=== PATIENT | female | born 1955 | race Caucasian/White ===

== ENCOUNTER 2017-06-13 06:17 | Day surgery (SDC) | payer OTHER ==
[2017-06-09 10:02] VITALS: BMI 26.9
[2017-06-13] MEDS ORDERED: ROCURONIUM BROMIDE 50 MG/5 ML VIAL ONE (07:57)
[2017-06-13] MEDS ORDERED: SUCCINYLCHOLINE CHLORIDE 200 MG/10 ML VIAL ONE (07:57)
[2017-06-13] MEDS ORDERED: PROPOFOL 20 ML ONE (07:57)
[2017-06-13] MEDS ORDERED: LIDOCAINE HCL/PF 2% SDV 5ML VIAL ONE (07:57)
[2017-06-13] MEDS ORDERED: MIDAZOLAM HCL 2 MG/2 ML SINGLE DOSE VIAL ONE (07:58)
--- NOTE | 2017-06-13 08:05 | HP ---
History & Physical Update - History History: No Change - Physical Physical: No Change - Assessment Assessment: No Change - Plan Plan: No Change
--- NOTE | 2017-06-13 08:15 | HP ---
Satellite H - Chief Complaint Chief Complaint: Left and right groin pain History of Present Illness: 61 female with left possible right inguinal hernias History Source: Patient Limitations to Obtaining History: No Limitations - Past Medical History Allergies/Adverse Reactions: Allergies Allergy/AdvReac Type Severity Reaction Status Date / Time guaifenesin [From Robitussin] Allergy "HIVES" Verified 06/13/17 06:44 naproxen [From Naprosyn] Allergy "HIVES" Verified 06/13/17 06:44 naproxen sodium [From Aleve] Allergy "HIVES" Verified 06/13/17 06:44 Penicillins Allergy Hives Verified 06/13/17 06:44 ANTIHISTAMINES Allergy "HIVES" Uncoded 06/13/17 06:44 - Current Medications Current Medications: Home Medications Medication Instructions Recorded Ascorbate Calcium [Vitamin C] 500 mg PO DAILY 06/09/17 Aspirin Coated [Ecotrin -] 81 mg PO DAILY 06/09/17 Chlorophyllin/Haskell [Chlorophyll 1 each PO BIDAC 06/09/17 20 mg Tablet] Satellite Physical Exam - Physical Examination Vital Signs: Vital Signs Period Temp Pulse Resp BP Sys/Daley Pulse Ox Last 24 Hr 97.6 F 70 20 131/85 100 General Appearance: Well Nourished Lung: Clear to auscultation Heart: Regular rate & rhythm Abdomen: No tenderness, Other (+ Left inguinal hernia, possible right inguinal hernia) Neurological: Alert, Oriented Satellite Impression/Plan - Impression/Plan Impression: Left possible bilateral inguinal hernias Operative Procedure: Robotic left possible right inguinal hernia repair with mesh Date to be Performed: 06/13/17
[2017-06-13] MEDS ORDERED: CLINDAMYCIN 600 MG PREMIX BAG IVPB ONE (08:32)
[2017-06-13] MEDS ORDERED: DEXAMETHASONE SOD PHOSPHATE 4 MG/1 ML VIAL ONE ×2 (08:34→10:29)
[2017-06-13] MEDS ORDERED: CLINDAMYCIN PHOSPHATE 600 MG/4 ML VIAL ONE (08:34)
[2017-06-13] MEDS ORDERED: ePHEDrine SULFATE 50 MG/1 ML AMPULE ONE (08:41)
[2017-06-13] MEDS ORDERED: BUPIVACAINE HCL/PF 0.5% (5MG/ML) 10 ML VIAL IJ ONE ×2 (08:58→10:24)
[2017-06-13] MEDS ORDERED: PROMETHAZINE HCL 25 MG/1 ML VIAL IVPUSH PRN (10:02)
[2017-06-13] MEDS ORDERED: oxyCODONE HCL 5 MG TABLET PO PRN (10:02)
[2017-06-13] MEDS ORDERED: ONDANSETRON 4 MG/2 ML VIAL IVPUSH PRN (10:02)
[2017-06-13] MEDS ORDERED: LACTATED RINGERS SOLUTION 1,000 ML IV SCH (10:15)
[2017-06-13] MEDS ORDERED: NEOSTIGMINE METHYLSULFATE 0.5 MG/ML - 10 ML MDV ONE (10:23)
--- NOTE | 2017-06-13 11:51 | OP ---
Operative Note - Note: Operative Date: 06/13/17 Pre-Operative Diagnosis: Left recurrent inguinal hernia possible right Operation: Robotic left recurrent inguinal hernia repair with mesh, Robotic right recurrent inguinal hernia repair with mesh, open umbilical hernia repair Post-Operative Diagnosis: Other (Bilateral recurrent inguinal hernias, umbilical hernia) Surgeon: Brian Nelson Ripsawyer: Santa Jordan Anesthesia: General Specimens Removed: Left inguinal hernia content Estimated Blood Loss (mls): 30 Operative Report Dictated: Yes
--- NOTE | 2017-06-13 11:52 | OP ---
Operative Note - Note: Operative Date: 06/13/17 Pre-Operative Diagnosis: left inguinal hernia, possible right hernia Operation: robotic assisted bilateral inguinal hernia repari with mesh, repair of umbilical hernia Surgeon: Brian Nelson Prop Maker: Santa Jordan Anesthesiologist/DISPLAY CARD WRITER: Camila Corley Anesthesia: General Estimated Blood Loss (mls): 30 Drains, Volume Out (mls): 200 (lanier) Fluid Volume Replaced (mls): 1,400 Operative Report Dictated: Yes
[2017-06-13] MEDS ORDERED: ONDANSETRON 4 MG/2 ML VIAL ONE (13:02)
--- NOTE | 2017-06-13 13:04 | SPEC ---
DATE OF OPERATION: 06/13/2017 SURGEON: Brian Nelson MD CONDUIT WORKER: LUDY Iglesias PREOPERATIVE DIAGNOSIS: Left recurrent inguinal hernia, possible right recurrent inguinal hernia. POSTOPERATIVE DIAGNOSIS: Left recurrent inguinal hernia, right recurrent inguinal hernia and umbilical hernia. PROCEDURE: Robotic repair of the left recurrent inguinal hernia with mesh, robotic repair of right recurrent inguinal hernia with mesh and open umbilical hernia repair. SPECIMEN: Left inguinal hernia contents. ESTIMATED BLOOD LOSS: 30 mL. DRAINS: None. ANESTHESIA: General endotracheal. REASON FOR PROCEDURE: This is a 61-year-old female who presented to the office for leg groin pain. She had previous repair in both of her inguinal regions for inguinal hernia repairs in the past. On examination she was noted to have a left inguinal hernia. In addition she decreased some pain in her right groin and a possible right inguinal hernia was palpated as well. Because of this she was consented for robotic left, possible bilateral, inguinal hernia repair with mesh, possible open. RISKS AND BENEFITS: The risks and benefits of a robotic, possible open left inguinal hernia repair, possible bilateral inguinal hernia repair with mesh were explained. These included bleeding, infection, recurrence of hernia, [place], DVT, PE, new hernia, injury to surrounding structures including the colon, bowel, bladder, ureter, round ligament, adnexal structures, vessel injury, nerve injury, and were explained as some of the possible complications. The patient understood and signed informed consent. DESCRIPTION OF PROCEDURE: The patient was placed supine on the operating room table. The patient then underwent general endotracheal intubation. A Mcpherson catheter was inserted. The arms were tucked at the side, and she was placed on a beanbag device. The abdomen was prepped and draped in the usual sterile fashion. A timeout was performed. An umbilical incision was made, and entrance to the abdominal cavity was obtained using an 8-mm robotic optical trocar under direct visualization with a laparoscope. An umbilical hernia was noted. Pneumoperitoneum was established. Subsequently, 2 additional 8-mm trocars were placed, one at approximately 6 to 7 cm to the left of the umbilicus and one 6 to 7 cm to the right of the umbilicus. The patient was placed in steep Trendelenburg, left side up position. The robot was brought over the field and docked. Dissection was performed at the console. The peritoneum was opened using the robotic Endoshears. The preperitoneal space over the left inguinal region was dissected. The epigastric vessels were identified and dissected towards the anterior abdominal wall. Dissection of the preperitoneal space was continued from the medial umbilical ligament towards the anterior-superior iliac spine. Medially, dissection was performed until Mainor ligament and the pubis were identified. Lateral to this , the round ligament was identified. The contents of the hernia sac were identified and dissected down to the retroperitoneum. At this point, hemostasis was identified. Again, all the hernia contents and the pold mesh were noted to be completely dissected and noted to have no retraction back to its original position. A Symbotex mesh was then chosen, irrigated, and inserted into the abdominal cavity to cover the entire myopectineal orifice. The mesh was secured medially at the pubis and superolaterally to the abdominal wall with sutures. The mesh was noted to be in good position. The hernia was again noted to be fully reduced and without any tension. At this point, the peritoneal flap was closed using a 2-0 V-Loc suture. Again, hemostasis was identified. Then, the same technique was used on the right side. An indirect hernia defect was noted. The old mesh and the entire hernia defect was noted to be fully reduced after dissection. A symbotex mesh was again applied and secured in the same two positions. Again, hemostasis was noted and the mesh was noted to be in good position. The flalp was closed with a 2-0 V-Loc suture. All needles were removed from the field, and the count was confirmed to be correct. The robotic instruments were removed. The robot was undocked and removed from the operative field. The patient was placed supine. Pneumoperitoneum was desufflated. All trocars were removed. The umbilical hernia was closed using a 0 Vicryl stitch in a [id number] fashion. Marcaine was injection to all wounds and hemostasis was noted at all wounds and all skin incisions were closed using 4-0 Biosyn. Sterile dressings were applied. The Mcpherson catheter was removed at the end of the case. The patient tolerated the procedure well and was transferred to the recovery room in stable condition. Joanna [id number] BRADY
[2017-06-13 13:17] VITALS: TEMP 97.9
[2017-06-13] MEDS ORDERED: oxyCODONE HCL 5 MG TABLET ONE (13:53)
[2017-06-13 14:35] VITALS: BP 143/90; PULSE 96
--- NOTE | 2017-06-13 16:11 | SURG ---
Surgery Reel Operator Note Reel Operator: Santa Jordan PA-C Date of Service: 06/13/17 Diagnosis: Left recurrent inguinal hernia possible right Procedure: Robotic left recurrent inguinal hernia repair with mesh, Robotic right recurrent inguinal hernia repair with mesh, open umbilical hernia repair I was present for the entirety of the operative procedure. For further detail, please refer to operative report. Visit type - Case Type Case Type: Scheduled Admission - Emergency Emergency Visit: No - New patient This patient is new to me today: Yes Date on this admission: 06/13/17 - Critical Care Critical Care patient: No
--- NOTE | 2017-06-14 14:40 | PATH ---
Surgical Pathology Report Patient Name: VELIA ABUDL [facility]. Rec. #: [id number] /Age/Gender: 1955 (Age: 61) / F Account: [id number] Location: [facility] SURGICAL Taken: 06/13/2017 Received: 06/13/2017 Reported: 06/14/2017 Physicians: Brian Nelson M.D. Specimen(s) Received HERNIA CONTENT LEFT Clinical History Left inguinal hernia Final Diagnosis HERNIA CONTENTS, LEFT, INGUINAL HERNIA REPAIR: BENIGN FIBROFATTY TISSUE WITH VASCULAR CONGESTION AND FOCAL HEMORRHAGE. Electronically Signed Yordy Ag M.D. Gross Description Received in formalin labeled "hernia contents left" is a 0.8 x 0.5 x 0.2 cm portion of salgado-yellow soft tissue. The specimen is submitted in toto in one cassette. 06/13/201706/13/2017
== END 2017-06-13 14:39 | disposition home or self-care (01) ==
LOC: JASU-SURG 06:17
PROVIDERS: ATTEND Surgery
PROC: 8E0W0CZ Robotic Assisted Procedure of Trunk Region, Open Approach (ICD-10-PCS; 2017-06-13)
PROC: 0WQF0ZZ Repair Abdominal Wall, Open Approach (ICD-10-PCS; 2017-06-13)
PROC: 0YUA0JZ Supplement Bilateral Inguinal Region with Synthetic Substitute, Open Approach (ICD-10-PCS; principal; 2017-06-13 08:00)
DX: K40.21 Bilateral inguinal hernia, without obstruction or gangrene, recurrent (principal); K42.9 Umbilical hernia without obstruction or gangrene
CPT/HCPCS: 49520; 49585; S2900; 88302-TC; 94760

== ENCOUNTER 2019-02-27 11:49 | Emergency (ER) | payer OTHER ==
--- NOTE | 2019-02-27 11:58 | PDOC ---
Rapid Medical Evaluation Time Seen by Provider: 02/27/19 11:53 Medical Evaluation: Allergies Allergy/AdvReac Type Severity Reaction Status Date / Time guaifenesin [From Robitussin] Allergy "HIVES" Verified 06/13/17 06:44 naproxen [From Naprosyn] Allergy "HIVES" Verified 06/13/17 06:44 naproxen sodium [From Aleve] Allergy "HIVES" Verified 06/13/17 06:44 Penicillins Allergy Hives Verified 06/13/17 06:44 ANTIHISTAMINES Allergy "HIVES" Uncoded 06/13/17 06:44 02/27/19 11:53 I have performed a brief in-person evaluation of this patient. 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
[2019-02-27 11:59] VITALS: PULSE 106; TEMP 98.5; BMI 26.9
[2019-02-27] MEDS ORDERED: diazePAM 5 MG TABLET PO ONE (13:25)
--- NOTE | 2019-02-27 13:32 | PDOC ---
History of Present Illness - General Chief Complaint: Head/Neck problem Stated Complaint: Pain, Acute Time Seen by Provider: 02/27/19 11:53 Past History - Past Medical History Allergies/Adverse Reactions: Allergies Allergy/AdvReac Type Severity Reaction Status Date / Time guaifenesin [From Robitussin] Allergy "HIVES" Verified 02/27/19 11:54 naproxen [From Naprosyn] Allergy "HIVES" Verified 02/27/19 11:54 naproxen sodium [From Aleve] Allergy "HIVES" Verified 02/27/19 11:54 Penicillins Allergy Hives Verified 02/27/19 11:54 ANTIHISTAMINES Allergy "HIVES" Uncoded 02/27/19 11:54 Home Medications: Ambulatory Orders Cyclobenzaprine HCl [Flexeril -] 10 mg PO TID 02/27/19 Hydrochlorothiazide [Hctz -] 12.5 mg PO DAILY 02/27/19 Methylprednisolone [Medrol Dose Rd] 4 mg PO ASDIR #21 tablet 02/27/19 Anemia: No Asthma: No Cancer: No Cardiac Disorders: No ("NEGATIVE ANGIOGRAM") CVA: No COPD: No CHF: No Dementia: No Diabetes: No GI Disorders: No Disorders: No HTN: Yes Hypercholesterolemia: No Liver Disease: No Seizures: No Thyroid Disease: No - Surgical History Abdominal Surgery: Yes (DANIEL INGUINAL HERNIA REPAIR) - Suicide/Smoking/Psychosocial Hx Smoking History: Never smoked Hx Alcohol Use: No Drug/Substance Use Hx: No Substance Use Type: None Hx Substance Use Treatment: No *Physical Exam - Vital Signs Last Vital Signs Temp Pulse Resp BP Pulse Ox 98.5 F 106 H 17 149/105 H 100 02/27/19 11:54 02/27/19 11:54 02/27/19 11:54 02/27/19 11:54 02/27/19 11:54 *DC/Admit/Observation/Transfer Diagnosis at time of Disposition: Cervical strain, acute, Cervical radiculopathy - Discharge Dispostion Disposition: HOME Condition at time of disposition: Stable Decision to Admit order: No - Prescriptions Prescriptions: Methylprednisolone [Medrol Dose Rd] 4 mg PO ASDIR #21 tablet - Referrals Referrals: Anhtony Morin MD [Staff Physician] - - Patient Instructions Printed Discharge Instructions: DI for Cervical Radiculopathy Additional Instructions: Please start the Medrol Dosepak today and take the medication as directed. Continue with the Flexeril at home. Return to the emergency room for worsening symptoms and follow-up with orthopedic spine surgery without fail in 1-2 days for further evaluation and treatment options. He may also take Tylenol as directed for additional pain medication - Post Discharge Activity
[2019-02-27] MEDS ORDERED: diazePAM 5 MG TABLET ONE (13:35)
[2019-02-27 13:47] VITALS: BP 147/105
== END 2019-02-27 13:47 | disposition home or self-care (01) ==
LOC: JERFT 11:49
DX: S16.1XXA Strain of muscle, fascia and tendon at neck level, initial encounter (principal); M54.12 Radiculopathy, cervical region; I10 Essential (primary) hypertension
CPT/HCPCS: 99281-25